=== PATIENT | female | born 1990 | race Caucasian/White ===

== ENCOUNTER → 2019-12-21 09:17 | Outpatient (BNVA) | payer OTHER, SELFPAY | PROVIDERS: Visit Provider Obstetrics & Gynecology | DX: Z12.4 Encounter for screening for malignant neoplasm of cervix (principal) | CPT/HCPCS: 88175 ==

== ENCOUNTER → 2020-01-10 13:36 | Outpatient (BNVA) | payer OTHER, SELFPAY | PROVIDERS: Visit Provider Obstetrics & Gynecology | DX: Z30.9 Encounter for contraceptive management, unspecified (principal); B96.89 Other specified bacterial agents as the cause of diseases classified elsewhere; N76.0 Acute vaginitis; Z30.430 Encounter for insertion of intrauterine contraceptive device | CPT/HCPCS: 81025; 87070 ==

== ENCOUNTER → 2020-09-02 11:01 | Outpatient (BNVA) | payer OTHER, SELFPAY | PROVIDERS: Visit Provider Nurse Practitioner Family | DX: N39.0 Urinary tract infection, site not specified (principal); R10.32 Left lower quadrant pain | CPT/HCPCS: 81000 ==

== ENCOUNTER 2022-05-18 23:24 | Emergency (ER) | payer OTHER, SELFPAY ==
--- NOTE | 2022-05-18 23:26 | XRR_ITS ---
PROCEDURE INFORMATION: Exam: XR Left Hand Exam date and time: 05/18/2022 11:39 PM Age: 32 years old Clinical indication: Injury or trauma; Fall; Swelling (edema); Left middle finger TECHNIQUE: Imaging protocol: Radiologic exam of the Left hand. Views: 3 or more views. COMPARISON: No relevant prior studies available. FINDINGS: Bones/joints: Comminuted minimally displaced fracture through the shaft of the middle finger middle phalanx. Soft tissues: Normal. XR/XR hand LT min 3V* [id number] IMPRESSION: Comminuted minimally displaced fracture through the shaft of the middle finger middle phalanx.
[2022-05-18 23:42] VITALS: BMI 24.2
[2022-05-18 23:44] VITALS: BP 121/71; PULSE 85; RESP 16; TEMP 37; O2SAT 99
--- NOTE | 2022-05-18 23:44 | ED_ITS ---
HPI - Extremity Problem General: Chief complaint: Extremity Injury, Upper Stated complaint: finger injury on left hand Time Seen by Provider: 05/18/22 23:36 Source: patient Mode of arrival: ambulatory Limitations: no limitations History of Present Illness: 32-year-old female states that she was on a rope swing swimming in the water states that she had swelling in her foot and felt immediate pain to her left middle finger she is unsure what actually happened she has had increasing pain since event she rates her pain a 7 out of 10 especially movement improved with rest denies any other injuries. Associated symptoms: Deny chest pain, fever(s) or rash Review of Systems Const: Denies: fever(s), chills, body aches or change in appetite Eyes: Denies: blurry vision or eye discomfort ENMT: Denies: throat pain or dental pain Card: Denies: chest pain Resp: Denies: dyspnea GI: Denies: abdominal pain, nausea, vomiting or diarrhea : Denies: dysuria Musc: Reports: extremity pain Skin/Breast: Denies: rash Neuro: Denies: headache(s) Psych: Denies: depression Kennedy/Lymph: Denies: easy bruising All/Imm: Denies: urticaria PFSH ED PFSH: Medical History (Updated 05/18/22 @ 23:47 by Gael Escamilla MD) Acute left-sided back pain Ruptured cyst of left ovary Surgical History (Updated 09/09/20 @ 13:49 by Nicki Sepulveda) History of mandibular surgery Hx of cholecystectomy Family History (System 09/09/20 @ 13:49 by Nicki Sepulveda) Grandmother Breast cancer maternal Hypertension paternal Stroke paternal Other Cancer Social History (System 09/09/20 @ 13:49 by Nicki Sepulveda) Smoking and tobacco status: never smoked Alcohol intake: current Alcohol intake frequency: holidays/special occasions only Alcohol type: beer Current occupational status: employed Physical Exam Const: COMMON NORMALS: no acute distress, patient oriented x3 and healthy appearing HENMT: COMMON NORMALS: normocephalic and atraumatic HEAD & SCALP: normocephalic and atraumatic Eye: COMMON NORMALS: Equal, round and reactive pupils present PUPIL: Yes Equal, round and reactive pupils present Neck/C-Spine: COMMON NORMALS: full ROM and supple Chest: COMMONS NORMALS: normal inspection of the chest Resp: COMMON NORMALS: normal respiratory effort, No retractions, No use of accessory muscles and clear to auscultation bilaterally AUSCULTATION: clear to auscultation bilaterally Cardio: COMMON NORMALS: regular rate, regular rhythm and No murmurs present (C ardio) RATE: regular rate RHYTHM: regular rhythm GI: INSPECTION: Yes normal to inspection Extremity: COMMON NORMALS: full ROM NARRATIVE EXTREMITY EXAM: Contusion to left middle finger at the PIP has full range of motion tenderness to touch Neuro: COMMON NORMALS: patient oriented x3, moves all extremities and no focal motor deficits Psych: COMMON NORMALS: mental status grossly normal, Normal thought process present and cooperative THOUGHT PROCESS: Normal thought process present Skin: COMMON NORMALS: no rashes or lesions noted and no wounds GENERAL SKIN EXAM: no rashes or lesions noted Course Vital Signs: Vital signs: Vital Signs Temperature 98.6 F 05/18/22 23:44 Pulse Rate 85 05/18/22 23:44 Respiratory Rate 16 05/18/22 23:44 Blood Pressure 121/71 05/18/22 23:44 Pulse Oximetry 99 05/18/22 23:44 MDM - Extremity (Nontraumatic) Medical Decision Making Patient presents with a finger fracture to her left middle finger is nondisplaced. Will place in a splint get follow-up with orthopedics and prescribe pain meds she is to follow-up and return if worsening. Discharge Plan Discharge Patient Disposition: Home Clinical Impression: Finger fracture, left Qualifiers: Encounter type: initial encounter Finger: middle finger Fracture type: closed Phalanx: middle Fracture alignment: nondisplaced Qualified Code(s): S62.653A - Nondisplaced fracture of middle phalanx of left middle finger, initial encounter for closed fracture Condition: Stable Prescriptions: New hydrocodone-acetaminophen 5-325 mg tablet 1 tab PO Q6H PRN (Reason: pain) Qty: 14 0RF Naprosyn 500 mg tablet 500 mg PO BID PRN (Reason: pain) Qty: 20 0RF No Action doxycycline hyclate 100 mg capsule 100 mg PO QDAY PRN0RF albuterol sulfate 90 mcg/actuation aero powdr breath act w/sensor 2 inh INHALATION Q6H PRN0RF Label Comments: 1 minute apart before exercise metronidazole 0.75 % gel 1 applic TOPICAL QDAY 0RF tretinoin 0.025 % cream 1 applic TOPICAL DAILY PRN0RF Dalila 14 mcg/24 hrs (3 yrs) 13.5 mg intrauterine device INTRAUTERI 0RF doxycycline hyclate 100 mg tablet 100 mg PO .PRN 0RF omega-3 fatty acids [Fish Oil Concentrate] 1,000 mg capsule 1,000 mg PO DAILY 0RF albuterol sulfate 90 mcg/actuation HFA aerosol inhaler 2 puff INHALATION Q6H PRN0RF Multi-Vitamin HP/Minerals Capsule 1 cap PO DAILY 0RF Discharge Orders: Discharge ED (Routine); Ordered 05/18/22 Ordered By: Gael Escamilla Referrals: Anabel Kitchen MD [Physician] - 1-3 days Discharge Diet: Advance as tolerated Discharge Activity: Resume usual activity Patient Instructions: Finger Fracture (ED), Opioid Safety Coding Level of Care Code ED Stripping Machine Operator for Chg Fwd Exam Comprehensive
[2022-05-19 00:14] VITALS: BP 110/67; PULSE 90; RESP 16; TEMP 36.7; O2SAT 99
--- NOTE | 2022-05-19 09:56 | PC.SOCIAL ---
Ortho Follow-Up Message sent to ortho clinic to schedule patient a follow-up appointment. Clinic will call patient with appointment.
--- NOTE | 2022-05-20 14:02 | PC.SOCIAL ---
Ortho F/u Ortho clinic wants patient to see a hand specialist. Attempted to reach patient to get her preference of location, lives in [place], [place]. Went ahead and faxed referral to [facility] in [place]. . They will contact her with appointment. If patient returns call and does not want to go to [facility] will need to update them and fax where she requests.
== END 2022-05-19 00:16 | disposition home or self-care (01) ==
PROVIDERS: Emergency Provider Emergency Medicine
DX: S62.653A Nondisplaced fracture of middle phalanx of left middle finger, initial encounter for closed fracture (principal); X58.XXXA Exposure to other specified factors, initial encounter
CPT/HCPCS: 73130; 99283

== ENCOUNTER → 2023-02-02 11:05 | Outpatient (BNVA) | payer OTHER, SELFPAY | PROVIDERS: Visit Provider Nurse Practitioner Women's Health | DX: Z32.01 Encounter for pregnancy test, result positive (principal) | CPT/HCPCS: 81000; 81025 ==

== ENCOUNTER → 2023-02-23 14:10 | Outpatient (BNVA) | payer OTHER, SELFPAY | PROVIDERS: Visit Provider Nurse Practitioner Women's Health | DX: Z36.87 Encounter for antenatal screening for uncertain dates (principal) | CPT/HCPCS: 76817 ==

== ENCOUNTER → 2023-03-15 08:28 | Outpatient (BNVA) | payer OTHER, SELFPAY | PROVIDERS: Visit Provider Obstetrics & Gynecology | DX: Z34.00 Encounter for supervision of normal first pregnancy, unspecified trimester (principal) | CPT/HCPCS: 80307; 84315; 87086 ==

== ENCOUNTER → 2023-03-29 07:52 | Outpatient (BNVA) | payer OTHER, SELFPAY | PROVIDERS: Visit Provider Obstetrics & Gynecology | DX: Z34.00 Encounter for supervision of normal first pregnancy, unspecified trimester (principal) | CPT/HCPCS: 76817; 80307; 84315; 85027; 86592; 86762; 86803; 86850; 86870; 86900; 87086; 87340; 87491; 87591; 87661; 87806 ==

== ENCOUNTER → 2023-04-26 12:10 | Outpatient (BNVA) | payer OTHER, SELFPAY | PROVIDERS: Visit Provider Obstetrics & Gynecology | DX: Z36.9 Encounter for antenatal screening, unspecified (principal) | CPT/HCPCS: 76817; 82105; 84315 ==

== ENCOUNTER → 2023-05-11 09:13 | Outpatient (BNVA) | payer OTHER, SELFPAY | PROVIDERS: Visit Provider Obstetrics & Gynecology | DX: O34.42 Maternal care for other abnormalities of cervix, second trimester (principal); Z98.890 Other specified postprocedural states; Z3A.18 18 weeks gestation of pregnancy | CPT/HCPCS: 76817 ==

== ENCOUNTER → 2023-05-24 14:13 | Outpatient (BNVA) | payer OTHER, SELFPAY | PROVIDERS: Visit Provider Obstetrics & Gynecology | DX: Z34.90 Encounter for supervision of normal pregnancy, unspecified, unspecified trimester (principal) | CPT/HCPCS: 76805; 76817 ==

== ENCOUNTER → 2023-06-01 12:17 | Outpatient (BNVA) | payer OTHER, SELFPAY | PROVIDERS: Visit Provider Obstetrics & Gynecology | DX: Z34.90 Encounter for supervision of normal pregnancy, unspecified, unspecified trimester (principal) | CPT/HCPCS: 76817 ==

== ENCOUNTER → 2023-06-14 12:28 | Outpatient (BNVA) | payer OTHER, SELFPAY | PROVIDERS: Visit Provider Obstetrics & Gynecology | DX: O34.40 Maternal care for other abnormalities of cervix, unspecified trimester (principal); Z3A.24 24 weeks gestation of pregnancy | CPT/HCPCS: 76817; 84315 ==

== ENCOUNTER → 2023-07-01 13:00 | Outpatient (BNVA) | payer OTHER, SELFPAY | PROVIDERS: Visit Provider Obstetrics & Gynecology | DX: Z34.00 Encounter for supervision of normal first pregnancy, unspecified trimester (principal) | CPT/HCPCS: 82950; 84315 ==

== ENCOUNTER → 2023-07-11 10:21 | Outpatient (BNVA) | payer OTHER, SELFPAY | PROVIDERS: Visit Provider Obstetrics & Gynecology | DX: Z34.00 Encounter for supervision of normal first pregnancy, unspecified trimester (principal) | CPT/HCPCS: 76815; 76817; 84315; 85025 ==

== ENCOUNTER → 2023-07-27 08:20 | Outpatient (BNVA) | payer OTHER, SELFPAY | PROVIDERS: Visit Provider Nurse Practitioner Women's Health | DX: Z34.00 Encounter for supervision of normal first pregnancy, unspecified trimester (principal) | CPT/HCPCS: 82951; 82952 ==

== ENCOUNTER → 2023-08-18 12:36 | Outpatient (BNVA) | payer OTHER, SELFPAY | PROVIDERS: Visit Provider Obstetrics & Gynecology | DX: Z34.00 Encounter for supervision of normal first pregnancy, unspecified trimester (principal) | CPT/HCPCS: 76815; 76817; 84315 ==

== ENCOUNTER → 2023-09-12 12:27 | Outpatient (BNVA) | payer OTHER, SELFPAY | PROVIDERS: Visit Provider Obstetrics & Gynecology | DX: Z36.9 Encounter for antenatal screening, unspecified (principal) | CPT/HCPCS: 76816; 84315; 87081 ==

== ENCOUNTER 2023-10-04 17:00 | Inpatient (IN) | payer OTHER, SELFPAY ==
[2023-10-04] VITALS (10 sets, daily range): BP systolic 113–154; BP diastolic 72–84; PULSE 64–77; RESP 17; TEMP 35.8; BMI 33.2
[2023-10-04 18:45] LABS: Basophils % 0.3 %; Eosinophils % 0.3 %; Hematocrit 37.5 % (36-47); Lymphocytes # 2.2 10^3/uL (0.8-4.8); Lymphocytes % 21.7 %; Mean Corpuscular HGB Conc 34.4 g/dL (30-55); Mean Corpuscular Hemoglobin 31.5 pg (27-33); Mean Corpuscular Volume 91.5 fl (85-98); Mean Platelet Volume 11.4 fL (7.4-10.4); Monocytes # 0.6 10^3/uL (0.2-0.9); Monocytes % 6.1 %; Neutrophils # 7.25 10^3/uL (1.8-7.7); Nucleated Red Blood Cells % 0 %; Platelet Count 156 10^3/cmm (157-399); Red Cell Distribution Width 12.9 % (12.1-15.1); White Blood Count 10.21 10^3/uL (3.29-11.43)
[2023-10-04] MEDS: miSOPROStol 100 mcg tablet 25 MCG VAGINAL ×2 (18:56→23:09)
[2023-10-04] MEDS: ampicillin 2,000 MG in sodium chloride 0.9% (plus) 50 ML 100 MG IV (18:56)
[2023-10-04] MEDS: dextrose 5%-lactated ringers 1,000 ML 125 ML IV (18:56)
[2023-10-04] MEDS: ampicillin 1,000 MG in sodium chloride 0.9% (plus) 50 ML 100 MG IV (23:07)
[2023-10-05] VITALS (46 sets, daily range): BP systolic 100–155; BP diastolic 55–90; PULSE 45–96; RESP 16–20; TEMP 36–36.4; O2SAT 97–98
[2023-10-05] MEDS: acetaminophen 325 mg Tablet 650 MG PO ×2 (03:11→16:05)
[2023-10-05] MEDS: miSOPROStol 100 mcg tablet 25 MCG VAGINAL (03:20)
[2023-10-05] MEDS: ampicillin 1,000 MG in sodium chloride 0.9% (plus) 50 ML 100 MG IV ×5 (03:20→18:20)
--- NOTE | 2023-10-05 07:52 | PM.OPHPUD ---
Labor & Delivery H&P Update Date of Procedure: October 05, 2023 Date H&P Performed: 10/03/23 H&P update information: I have reviewed H&P completed within last 30 days, I have examined patient prior to procedure and No changes to prior documentation Admission Diagnosis:
[2023-10-05] MEDS: oxytocin 30 UNIT/500 ML BAG IV (09:48)
[2023-10-05] MEDS: calcium carbonate 500 mg Chew Tablet 1000 MG PO (11:34)
[2023-10-05] MEDS: alum-mag-hydroxide-sime 30 mL UDC PO ×2 (12:00→20:28)
[2023-10-05] MEDS: dextrose 5%-lactated ringers 1,000 ML 125 ML IV (12:52)
[2023-10-05] MEDS: ondansetron 2 mg/ML SDV 2 mL 4 MG IVP (16:47)
[2023-10-05] MEDS: fentaNYL 50 mcg/mL INJ 2mL IVP ×3 (17:28→20:27)
[2023-10-05] MEDS: lidocaine 2% INJ 20 mL INJECTION (19:17)
--- NOTE | 2023-10-05 19:21 | P.PCNOB_ITS ---
Delivery Note: Date of delivery: October 05, 2023 Pre-delivery diagnoses: Term Post-delivery diagnoses: Term delivered Procedure: Spontaneous vaginal delivery Delivering Physician: Giovanni Dejesus MD Estimated blood loss (mL): 300 Pre-Delivery Course: The patient is a 33yo at 39 weeks EGA who has been receiving care from [facility]. Admitted to labor and delivery for elective induction LMP of 01/03/2023, VERA of 10/10/2023, placing her at 39-1/7 weeks gestation today. HPI: Received appropriate care. Daily vitamins since start of care. labs have all been normal, including negative for HIV. She was found to positive for Group B Strep from screening at 36 weeks. She has gained approximately 26 lbs throughout the . She denies a history of HTN during . Glucose tolerance screening for gestational diabetes was negative. Delivery: The patient was noted to be complete and pushing, so was placed in the dorsal lithotomy position, prepped and draped in the usual sterile fashion for a vaginal delivery. Pt. Noted to have epidural anesthesia. At the patient delivered a viable 39 weeks female weighing 3690 g with scores of 8 and 9 at one and five minutes, respectively. The vertex was delivered spontaneously over intact perineum. The patient was asked to push and the head delivered spontaneously in the WATSON position, over an intact perineum. A nuchal cord was checked and none noted. The anterior shoulder delivered easily and the posterior shoulder followed. The remainder of the infant was easily delivered and the oropharynx and nasopharynx was bulb suctioned. The infant was noted to have spontaneous cry and spontaneous movement of all four extremities. The cord was clamped x 2 and cut and noted to have 2 arteries and one vein. The infant was passed to the mother's abdomen where nursing personnel were in attendance. The placenta delivered intact via manual extraction and the uterus was explored. 20 units of Pitocin was placed in the IV bag to firm the uterus. Examination of the cervix and vaginal vault did not reveal any lacerations. A vaginal pack was then placed. Examination of the perineum showed no laceration except a small midline abrasion. The vaginal pack was then removed. The patient tolerated this procedure well, and recovered in L&D with her infant or note if taken to NICU. All sponge and needle counts were correct. History History History 1 Term 0 0 Miscarriages/Ectopic 0 Living Children 0 Coding Level of Care Code Acute Code for Chg Fwd
[2023-10-05] MEDS: benzocaine-menthol 78 gm Canister 1 SPRAY TOPICAL (19:47)
[2023-10-05] MEDS: ibuprofen 800 mg tablet PO (19:47)
[2023-10-05] MEDS: HYDROcodone-acetaminophen 5-325 mg Tablet PO (19:47)
[2023-10-05] MEDS: tranexamic acid 1,000 MG/100 ML PREMIX 600 MG IV (21:35)
[2023-10-05] MEDS: citric acid-sodium citrate 30 mL UDC PO (21:36)
[2023-10-05] MEDS: metoclopramide 5 mg/mL SDV 2 mL 10 MG IVP (21:36)
[2023-10-05] MEDS: lactated ringers 1,000 ML 999 ML IV (21:36)
[2023-10-05] MEDS: famotidine 20 mg/2 mL INJ IVP (21:37)
--- NOTE | 2023-10-05 22:24 | PC.NURSE ---
2155 this nurse and Josué Valladares CST transported pt via stretcher to Preop in main OR. Viviane Jesus RN took report from this nurse and care was transferred at 2202.
--- NOTE | 2023-10-05 22:32 | P.ANESASSM_ITS ---
Pre-Anesthetic Assessment Height/Weight: Height 1.68 m Weight 93.44 kg Temp Pulse Resp BP O2 Del Method 97.5 F L 71 20 H 126/76 Room Air 10/05/23 16:17 10/05/23 21:47 10/05/23 18:23 10/05/23 21:47 10/04/23 23:53 Operation Date: 10/05/23 22:00 Proposed Procedures p Vaginal Laceration Repair(Not Applicable) - Giovanni Dejesus MD Familial anesthetic complications: none Was Beta Donna taken within 24 hours: N/A Was Clonidine taken within 24 hours: N/A Social No alcohol and No tobacco Exam alert, oriented x 3, clear to auscultation bilaterally and regular rate & rhythm Airway Submandibular: within normal limits Cervical ROM: within normal limits Mallampati: Class II Dentition: full Pulmonary Asthma CV/HEM Acute blood loss (post ) Neuropsych Headache Anesthetic Plan ASA status: 2E Anesthesia: General (RSI) Medications/Allergies Home Medications Medication Instructions Recorded Confirmed Last Taken Type albuterol sulfate 90 mcg/actuation 2 puff inhalation Q6H PRN 09/02/20 10/03/23 Unknown History aerosol inhaler prenat.vits,keily,kmr-nbrv-emvls 1 tab PO DAILY 02/22/23 10/03/23 Unknown History blood sugar diagnostic (Accu-Chek #100 ea 07/29/23 10/03/23 Unknown Rx Guide test strips) blood-glucose meter (Accu-Chek #1 ea 07/29/23 10/03/23 Unknown Rx Guide Glucose Meter) lancets 31 gauge (Comfort Touch #100 ea 07/29/23 10/03/23 Unknown Rx Ultra Thin Lancets) Allergies Allergy/AdvReac Type Severity Reaction Status Date / Time No Known Allergies Allergy Verified 10/03/23 11:17 Current Medications Generic Name Dose Route Start Last Admin Trade Name Freq PRN Reason Stop Dose Admin Acetaminophen 650 mg 10/04/23 18:23 10/05/23 16:05 Acetaminophen 325 Mg Tablet PO 650 mg Q6H PRN Administration MILD TO MODERATE PAIN Hydrocodone Bitart/Acetaminophen 1 - 2 tab 10/05/23 19:26 10/05/23 19:47 Hydrocodone-Acetaminophen 5-325 Mg Tablet PO 2 tab Q6H PRN Administration MODERATE TO SEVERE PAIN Al Hydrox/Mg Hydrox/Simethicone 30 ml 11/07/23 18:23 10/05/23 20:28 Ahqj-Rpl-Vzjezytbr-Vincenzo 30 Ml Udc PO 30 ml Q4H PRN Administration INDIGESTION Benzocaine 1 spray 10/05/23 19:26 10/05/23 19:47 Benzocaine-Menthol 78 Gm Canister TOPICAL 1 spray PRN PRN Administration PAIN Calcium Carbonate 1,000 mg 10/05/23 08:28 10/05/23 11:34 Calcium Carbonate 500 Mg Chew Tablet PO 1,000 mg Q4H PRN Administration Heartburn/Indigestion (Use 1st) Fentanyl 25 - 100 mcg 10/04/23 18:23 10/05/23 20:27 Fentanyl 50 Mcg/Ml Inj 2ml IVP 100 mcg Q1H PRN Administration SEVERE PAIN Dextrose/Lactated Ringer's 1,000 mls @ 125 mls/hr 10/04/23 18:23 10/05/23 12:52 Dextrose 5%-Lactated Ringers IV 125 mls/hr .Q8H PRN Administration per label comments Ampicillin Sodium 1,000 mg/ 50 mls @ 100 mls/hr 10/04/23 22:30 10/05/23 18:50 Sodium Chloride IV Infused Q4H JUSTINE Infusion Protocol Lactated Ringer's 1,000 mls @ 999 mls/hr 10/05/23 08:28 10/05/23 21:36 Lactated Ringers IV 999 mls/hr .Q1H1M PRN Administration BLEEDING Tranexamic Acid 1,000 mg in 100 mls @ 600 mls/hr 10/05/23 08:28 10/05/23 21:35 Tranexamic Acid IV 600 mls/hr Q30M PRN Administration BLEEDING Oxytocin 30 unit in 500 mls @ 1 mls/hr 10/05/23 08:30 10/05/23 17:00 Pitocin IV 5 milliunit/min .Q24H JUSTINE 5 mls/hr Titration Protocol 1 MILLIUNIT/MIN Ibuprofen 800 mg 10/05/23 21:00 10/05/23 19:47 Ibuprofen 800 Mg Tablet PO 800 mg TID JUSTINE Administration Ondansetron HCl 4 mg 10/04/23 18:23 10/05/23 16:47 Ondansetron 2 Mg/Ml Sdv 2 Ml IVP 4 mg Q4H PRN Administration NAUSEA AND VOMITING PFSH Anesthesia Medical History Exercise-induced asthma History of cervical cancer states that she was diagnosed at 26 y/o Migraine without aura Surgical History History of mandibular surgery 2006 S/P cholecystectomy 2009 S/P LEEP 2017- in [place] Family History Grandmother Breast cancer, Onset Age: 62 maternal Hypertension paternal Stroke paternal Denies family history of Colon cancer Ovarian cancer Diabetes Clotting disorder Heart disease Hyperlipidemia Anesthesia complication Bleeding disorder Uterine cancer Thyroid disease Female Reproductive History : 1 Data Anesthesia 10/04/23 18:00 Short CBC 10/04/23 Range/Units 18:00 WBC 10.21 (3.29-11.43) 10^3/uL Hgb 12.90 (11.27-16.99) g/dL Hct 37.5 (36-47) % MCV 91.5 (85-98) fl Plt Count 156 L (157-399) 10^3/cmm Neut % (Auto) 71.0 % Neut # (Auto) 7.25 (1.8-7.7) 10^3/uL Blood Bank 10/04/23 18:00 Blood Type A Positive Rho(D) Type Rh positive Cardiac Studies: No Data to Display
[2023-10-05 22:36] LABS: Hematocrit 25.9 % (36-47)
[2023-10-05] MEDS: ceFAZolin 2,000 mg SDV 2000 MG IVP (22:56)
--- NOTE | 2023-10-05 23:06 | SUR.OPER ---
[id number] FAMILY UPDATED VIA PHONE CALL
--- NOTE | 2023-10-05 23:51 | P.OP_ITS ---
Operative Report Date of procedure: October 05, 2023 Pre-op diagnosis: Status post spontaneous vaginal delivery. Vaginal hematoma Post-op diagnosis: Same Post-op findings: Vaginal hematoma Procedure done: Excision and evacuation of vaginal hematoma Specimens removed/disposition: none Surgeon: Giovanni Dejesus MD Estimated blood loss (mL): 200 IV fluids (mL): 1,550 Urine output (mL): 50 Complications: Bleeding Brief History: Mrs. Villanueva 33-year-old female is status post spontaneous vaginal delivery without complications developed a left vaginal hematoma extending to the left vulva. Procedure: After informed consent, the patient was taken to the operating room where general anesthesia was administered. Pre-Procedure Time-Out verifying the correct patient identity, correct procedure verified with consent, correct site and side, correct patient position, availability of correct implants and any special equipment or requirements was performed and acknowledge by the OR team. She was placed in the dorsal lithotomy position and prepped and draped in sterile fashion. A Malloy catheter was placed in the bladder. The patient was examined under anesthesia and a large vaginal hematoma was noted on the left vag inal wall extending to the vulva. An incision was made over the hematoma and the coagulated blood was evacuated. On examination with light suction no specific bleeders were identified and are was cauterized with bovie. The space was closed with 2-0 Vicryl in layers. The vaginal mucosa was closed with 2-0 Vicryl. Sponge, lap, needle, and instrument counts were correct times three. The patient was taken to the recovery room, awake and in stable condition.
[2023-10-06] VITALS (170 sets, daily range): BP systolic 106–141; BP diastolic 55–80; PULSE 57–84; RESP 15–16; TEMP 36.2–36.9; O2SAT 97–100
--- NOTE | 2023-10-06 00:30 | PC.NURSE ---
0010 pt back to floor accompanied by OR nurse Viviane Jesus and PACU nurse Stephanie Lovelace. Pt comfortable, awake and alert sating 100% on room air.
--- NOTE | 2023-10-06 03:14 | PC.NURSE ---
2049 pt complaining of 10/10 pain unrelieved by IV and PO medications. Possible hematoma now noted by this nurse beside left labia. clot passed onto justyna plum sized followed by moderate bleeding. chucks weighed and blood loss found to be 260mls at this time. 2057 Dr. Dejesus notified and states he is on his way to asses pt 2114 Dr. Dejesus at bedside to asses. requests anesthesia and OR staff. pt to be taken to main OR for hematoma evacuation and ligation of bleeder. 2144 pt has heavy bleeding. justyna is weighed and blood loss found to be 685mls at this time. physician notified.
[2023-10-06 06:09] LABS: Hematocrit 24.7 % (36-47); Mean Corpuscular HGB Conc 33.2 g/dL (30-55); Mean Corpuscular Hemoglobin 30.6 pg (27-33); Mean Corpuscular Volume 92.2 fl (85-98); Mean Platelet Volume 11.1 fL (7.4-10.4); Platelet Count 119 10^3/cmm (157-399); Red Blood Count 2.68 10^6/uL (3.85-5.65); Red Cell Distribution Width 14.1 % (12.1-15.1); White Blood Count 12.46 10^3/uL (3.29-11.43)
--- NOTE | 2023-10-06 07:31 | ANE.PACU2 ---
Inpatient post-anesthesia follow up: Airway intact: Yes Vital signs: Temperature 98.4 F Pulse Rate 62 Respiratory Rate 16 Blood Pressure 122/69 Pulse Oximetry 99 Oxygen Delivery Me thod Room Air Oxygen Flow Rate Fraction of Inspir ed Oxygen Hydration adequate: Yes Nausea and vomiting: No Pain level: 3 Mental status: Baseline
[2023-10-06] MEDS: ibuprofen 800 mg tablet PO ×3 (08:09→21:30)
[2023-10-06] MEDS: prenatal vitamin Capsule 1 CAP PO (08:09)
[2023-10-06] MEDS: docusate sodium 100 mg Capsule PO ×2 (08:09→18:21)
--- NOTE | 2023-10-06 09:23 | PC.NURSE ---
Assisted patient with waking techniques, positioning in football hold, patient attempted to latch . would latch and suckle a couple times then fall back asleep. was woke again and encouraged to latch several times. Attempted to entice to suckle with toot sweet. Infant continued to fall back asleep. Infant placed skin to skin with mother. Educated mother to attempt to latch if starts to lick lips or root at the breast.
[2023-10-06 11:43] LABS: Basophils % 0.2 %; Eosinophils % 0.1 %; Lymphocytes # 2.5 10^3/uL (0.8-4.8); Lymphocytes % 16.7 %; Mean Corpuscular HGB Conc 33.5 g/dL (30-55); Mean Corpuscular Hemoglobin 30.4 pg (27-33); Mean Corpuscular Volume 90.7 fl (85-98); Mean Platelet Volume 11.1 fL (7.4-10.4); Monocytes # 1.1 10^3/uL (0.2-0.9); Neutrophils # 11.44 10^3/uL (1.8-7.7); Neutrophils % 75.5 %; Nucleated Red Blood Cells % 0 %; Platelet Count 144 10^3/cmm (157-399); Red Blood Count 3.78 10^6/uL (3.85-5.65); Red Cell Distribution Width 14.6 % (12.1-15.1); White Blood Count 15.14 10^3/uL (3.29-11.43)
[2023-10-06 11:55] LABS: Hematocrit 34.3 % (36-47)
--- NOTE | 2023-10-06 11:55 | PC.NURSE ---
Lab called stating H&H were critical levels but both were WNL. Dr Dejesus notified of results and no new orders received.
--- NOTE | 2023-10-06 17:53 | PM.PN ---
Subjective Subjective: Mrs. Clements 33-year-old female is status post spontaneous vaginal delivery and left vaginal vulvar hematoma evacuation. Vitals/I&O/Wt Last Vital Signs Temp 98.6 F 10/07/23 06:32 Pulse 70 10/07/23 06:32 Resp 16 10/07/23 06:32 BP 131/71 10/07/23 06:32 Pulse Ox 99 10/07/23 06:32 O2 Del Method Room Air 10/06/23 09:14 10/06/23 10/07/23 10/07/23 22:59 06:59 14:59 Intake Total 800 / 2150 Balance 800 / -950 Physical Exam Narrative: GA; alert and oriented x 3 HEENT: normal Breasts: engorged Nipples - skin intact Lungs; clear to auscultation Heart: regular rhythm, no murmurs. Abd: Appropriately tender. BS+. Uterine fundus below umbilicus. No Fundal Tenderness. Perineum: normal lochia. Extremities: no edema, no cyanosis, no tenderness. Urinary Catheter Management: Malloy: Cath Placed During This Visit: yes, but has since been removed by the nurse Reason for Continuing Indwelling Catheter: Decision to DC Catheter Urinary Catheter Date of Insertion: 10/05/23 Urinary Catheter Time of Insertion: 22:20 Date Urinary Catheter Removed: 10/06/23 Time Urinary Catheter Discontinued: 09:29 Data 10/07/23 05:29 A&P Assessment and plan (1) Term delivered: Mrs. Sommer 33-year-old female status post continuous vaginal delivery who develop of vulvovaginal hematoma . Status post hematoma evacuation postoperative day 1. Afebrile and hemodynamically stable. Tolerating diet well. Ambulating without difficulty. (2) anemia: (3) Vulvar and perineal hematoma, : Attestations Medical Necessity Statement*: In my professional opinion per admitting diagnosis Coding Level of Care Code Acute Code for Chg Fwd Diagnoses Term delivered O80 anemia O90.81 Vulvar and perineal hematoma, O71.7
[2023-10-07 05:04] VITALS: BP 131/71; PULSE 71
[2023-10-07 05:35] LABS: Basophils % 0.4 %; Eosinophils # 0.1 10^3/uL (0.0-0.8); Eosinophils % 0.6 %; Hematocrit 31.4 % (36-47); Lymphocytes # 2.6 10^3/uL (0.8-4.8); Lymphocytes % 24.2 %; Mean Corpuscular HGB Conc 33.1 g/dL (30-55); Mean Corpuscular Hemoglobin 30.1 pg (27-33); Mean Corpuscular Volume 90.8 fl (85-98); Mean Platelet Volume 10.8 fL (7.4-10.4); Monocytes # 0.8 10^3/uL (0.2-0.9); Monocytes % 6.9 %; Neutrophils # 7.26 10^3/uL (1.8-7.7); Neutrophils % 67.2 %; Nucleated Red Blood Cells % 0 %; Platelet Count 164 10^3/cmm (157-399); Red Blood Count 3.46 10^6/uL (3.85-5.65); Red Cell Distribution Width 15.3 % (12.1-15.1); White Blood Count 10.81 10^3/uL (3.29-11.43)
[2023-10-07 06:32] VITALS: BP 131/71; PULSE 70; RESP 16; TEMP 37; O2SAT 99
[2023-10-07] MEDS: prenatal vitamin Capsule 1 CAP PO (09:07)
[2023-10-07] MEDS: ibuprofen 800 mg tablet PO (09:07)
[2023-10-07] MEDS: cetylpyridinium Lozenge 1 EACH MUCOUS MEM (09:07)
--- NOTE | 2023-10-07 09:46 | PM.OBGYDC ---
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 Mei 33-year-old female admitted to labor and delivery for elective induction. She progressed to have a spontaneous vaginal delivery without complication. Shortly after delivery she developed vulvovaginal hematoma which was extremely painful. The patient was taken to the OR left vaginal hematoma was evacuated and repair in usual manner. She received 2 units of packed red blood cells observation after that was uneventful. She is afebrile and hemodynamically stable postop day 2. She is tolerating diet well. Ambulating without difficulty. Breast-feeding without difficulty. She was counseled regarding pelvic rest for 6 weeks (no sex, no tampons, no vaginal douches). Return to the emergency room if any fever, increased bleeding or pain. Information Peripartum Data: Infant Delivery Method: Vaginal Physical Exam Narrative: GA; alert and oriented x 3 HEENT: normal Breasts: engorged Nipples - skin intact Lungs; clear to auscultation Heart: regular rhythm, no murmurs. Abd: Appropriately tender. BS+. Uterine fundus below umbilicus. No Fundal Tenderness. Perineum: normal lochia. Extremities: no edema, no cyanosis, no tenderness. Urinary Catheter Management: Malloy: Cath Placed During This Visit: yes, but has since been removed by the nurse Reason for Continuing Indwelling Catheter: Decision to DC Catheter Urinary Catheter Date of Insertion: 10/05/23 Urinary Catheter Time of Insertion: 22:20 Date Urinary Catheter Removed: 10/06/23 Time Urinary Catheter Discontinued: 09:29 History History History 1 Term 0 0 Miscarriages/Ectopic 0 Living Children 0 Discharge Data Studies Completed and Pending Laboratory Results WBC 10.81 10^3/uL (3.29-11.43) 10/07/23 05:29 RBC 3.46 10^6/uL (3.85-5.65) L 10/07/23 05:29 Hgb 10.40 g/dL (11.27-16.99) L 10/07/23 05:29 Hct 31.4 % (36-47) L 10/07/23 05:29 MCV 90.8 fl (85-98) 10/07/23 05:29 MCH 30.1 pg (27-33) 10/07/23 05:29 MCHC 33.1 g/dL (30-55) 10/07/23 05:29 RDW 15.3 % (12.1-15.1) H 10/07/23 05:29 Plt Count 164 10^3/cmm (157-399) 10/07/23 05:29 MPV 10.8 fL (7.4-10.4) H 10/07/23 05:29 Neut % (Auto) 67.2 % 10/07/23 05:29 Lymph % (Auto) 24.2 % 10/07/23 05:29 [place] % (Auto) 6.9 % 10/07/23 05:29 Eos % (Auto) 0.6 % 10/07/23 05:29 Baso % (Auto) 0.4 % 10/07/23 05:29 Neut # (Auto) 7.26 10^3/uL (1.8-7.7) 10/07/23 05:29 Lymph # (Auto) 2.6 10^3/uL (0.8-4.8) 10/07/23 05:29 [place] # (Auto) 0.8 10^3/uL (0.2-0.9) 10/07/23 05:29 Eos # (Auto) 0.1 10^3/uL (0.0-0.8) 10/07/23 05:29 Baso # (Auto) 0.0 10^3/uL (0.0-0.1) 10/07/23 05:29 Nucleated RBC % (auto) 0 % 10/07/23 05:29 Nucleated RBCs # 0.0 /100WBC 10/07/23 05:29 Blood Type A Positive 10/04/23 18:00 Rho(D) Type Rh positive 10/04/23 18:00 Antibody Screen Negative 10/04/23 18:00 Antibody Identification TNP 10/04/23 18:00 Cold Antibody Screen Negative 10/04/23 18:00 Crossmatch See Detail 10/04/23 18:00 Vitals Last Vital Signs Temp 98.6 F 10/07/23 06:32 Pulse 70 10/07/23 06:32 Resp 16 10/07/23 06:32 BP 131/71 10/07/23 06:32 Pulse Ox 99 10/07/23 06:32 O2 Del Method Room Air 10/06/23 09:14 Results Labs OB ([facility]): Obstetrics US 09/12/23 Blood Type A Positive 10/04/23 Antibody Screen Negative 10/04/23 Hct 31.4 % (36-47) L 10/07/23 Hgb 10.40 g/dL (11.27-16.99) L 10/07/23 Rho(D) Type Rh positive 10/04/23 Plt Count 164 10^3/cmm (157-399) 10/07/23 Hep Bs Antigen Non-reactive (Nonreactive) 03/29/23 Hepatitis C Antibody Non-reactive (Nonreactive) 03/29/23 [place] IgG Antibody 3.9 IU/mL (0.0-10.0) 03/29/23 RPR Nonreactive (Nonreactive) 03/29/23 HIV 1&2 Ab & HIV 1 Ag Non-reactive (Non-Reactiv) 03/29/23 Cystic Fibrosis Screen Negative 03/29/23 Gest Glucose Tolerance mg/dL 07/27/23 HCG, Qual Positive (Negative) H 02/02/23 Urine Opiates Screen Negative ng/mL (Negative) 03/29/23 Ur Barbiturates Screen Negative ng/mL (Negative) 03/29/23 Ur Phencyclidine Scrn Negative ng/mL (Negative) 03/29/23 Ur Amphetamines Screen Negative ng/mL (Negative) 03/29/23 U Benzodiazepines Scrn Negative ng/mL (Negative) 03/29/23 Urine Cocaine Screen Negative ng/mL (Negative) 03/29/23 U Marijuana (THC) Screen Negative ng/mL (Negative) 03/29/23 Micro Urine Specimen 03/29/23 Pap Smear Interpret See note 12/21/19 Discharge Plan Discharge Patient Disposition: Home Condition: Stable Prescriptions: New acetaminophen 325 mg capsule 325 mg PO Q4H PRN (Reason: fever or postoperative pain) Qty: 60 0RF docusate sodium [Colace] 100 mg capsule 100 mg PO BID Qty: 30 0RF ferrous sulfate [Iron (ferrous sulfate)] 325 mg (65 mg iron) tablet 325 mg PO BID Qty: 60 0RF ibuprofen 800 mg tablet 800 mg PO TID PRN (Reason: pain) Qty: 60 0RF No Action albuterol sulfate 90 mcg/actuation HFA aerosol inhaler 2 puff INHALATION Q6H PRN prenat.vits,keily,[id number] Tablet 1 tab PO DAILY (DME) blood-glucose meter [Accu-Chek Guide Glucose Meter] Misc See Rx Instructions .ROUTE .MEDSUPPLY Qty: 1 0RF Rx Instructions: Check blood sugar 4 times a day (DME) Accu-Chek Guide test strips Strip See Rx Instructions .ROUTE .MEDSUPPLY Qty: 100 3RF Rx Instructions: As directed (DME) Comfort Touch Ult Thin Lancets 31 gauge misc See Rx Instructions .ROUTE .MEDSUPPLY Qty: 100 3RF Rx Instructions: As directed Discharge Orders: Discharge Order (Routine); Ordered 10/07/23 Ordered By: Giovanni Dejesus Patient Instructions: Depression (DC), Preeclampsia and Eclampsia After Delivery (GEN), Hemorrhage (DC), OB Discharge Report, OB Food/Drug Interaction Guide, OB Care at Home, Opioid Safety, OB Home Care, Abnormal Bleeding Activity Restrictions/Additional Instructions: 1. Please call [facility] on next working day to make your post-operative appointment in 2 weeks and visit at 6 weeks. 2. Please stay home until you come back to the clinic on first post-hospatilization check up. 3. Please follow instructions on your medications CAREFULLY. 4. If you have abdominal incision, do not cover it unless dressing is necessary because of drainage. OK to shower, but avoid bath. Leave steri-strips until they fall off. If they are still on one week after surgery, you may remove them. 5. If you had vaginal surgery or vaginal repair, Dr. Dejesus may instruct you to take SITZ bath. 6. Yellow, blood tinged odorous vaginal discharge is usually normal after hysterectomy or vaginal surgeries. 7. No SEXUAL INTERCOURSE, tampons, or douches until you are completely released from the post-operative care. 8. Avoid constipation by eating right and maybe using some Metamucil or Milk of Magnesia. 9. All prescription refills are given during the working hours. Please do no wait till it runs out. Call the clinic at [phone] before your medication runs out. The clinic will get in touch with your doctor to prescribe medications if necessary. 10. Please remain within 40 mile radius from our hospital because emergencies do happen now and then during the post-operative period. 11. If you have stairs at home, take one step at a time slowly and minimize the number of trips. It helps to stay in one floor for the next few days. No lifting except what you can lift by one hand until you are released from the post-operative care. 12. Driving is discouraged until you are well healed. It may be 3-4 weeks before you feel strong enough to drive. You should be able to turn and look through the rear window without pain and you should be able to push the brake pedal very hard without pain before you drive. No fast rules, but SAFETY should be your primary concern. DO NOT drive if you are on sedating medications such as narcotics. 13. Call the clinic (during working hours) to make urgent appointment or go to the Emergency room, if any of the following occurs: i. Vaginal bleeding becomes heavy, more than a period. ii. Incision becomes red and sore, or drains pus. iii. Your TEMPERATURE is over 100.4F or you have chill. iv. IV site becomes red and swollen (a little ``knot?? is usually OK) v. Persistent nausea and vomiting vi. Persistent constipation or diarrhea vii. Rash or allergic reaction to medications. Discharge Attestations STEAMTABLE ATTENDANT RAILROAD Time Spent in Discharge Care*: greater than 30 min Coding Level of Care Code Acute Code for Chg Fwd Diagnoses
[2023-10-07 12:37] VITALS: BP 148/75; PULSE 70
[2023-10-07 12:43] VITALS: BP 148/75; PULSE 70; RESP 18; TEMP 36.6
== END 2023-10-07 12:43 | disposition home or self-care (01) | DRG 768 ==
LOC: OPOB 10-05 07:50 → OBGYN 10-05 07:50
PROVIDERS: Admitting Provider Obstetrics & Gynecology; PCP Family Medicine Adult Medicine; Visit Provider Obstetrics & Gynecology
PROC: 0UQG0ZZ Repair Vagina, Open Approach (ICD-10-PCS; principal; 2023-10-05 22:00)
DX: O99.824 Streptococcus B carrier state complicating childbirth (principal); O75.89 Other specified complications of labor and delivery; J45.990 Exercise induced bronchospasm; Z85.41 Personal history of malignant neoplasm of cervix uteri; O90.81 Anemia of the puerperium; O71.82 Other specified trauma to perineum and vulva; Z37.0 Single live birth; Z3A.39 39 weeks gestation of pregnancy
CPT/HCPCS: 36415; 36430; 59025; 59409; 85014; 85018; 85025; 85027; 86850; 86870; 86900; 86920; 96374; 96375; 98960; G0378; J0290; J0330; J0690; J1100; J2405; J2590; J2704; J2765; J3010; J3490; J3535; J7120; J7121; P9016; P9045

== ENCOUNTER 2023-10-10 11:54 | Observation (INO) | payer OTHER, SELFPAY ==
[2023-10-10] VITALS (7 sets, daily range): BP systolic 120–159; BP diastolic 77–94; PULSE 61–87; RESP 15–16; TEMP 36.6–37.1; O2SAT 97–99; BMI 31.9
--- NOTE | 2023-10-10 12:15 | ED_ITS ---
HPI - General: Chief complaint: OB/Uterine Contractions Stated complaint: increase pain/bleeding after Time Seen by Provider: 10/10/23 12:07 Source: patient Mode of arrival: EMS History of Present Illness: 33-year-old female presents to the emergency room with complaints of increased vaginal bleeding. She is 5 days normal spontaneous vaginal delivery she had a fairly extensive bleed and then developed a vulvovaginal hematoma that required surgical drainage. She received 2 units of blood her baseline hemoglobin was 12.9 her hemoglobin got as low as 8.2 after transfusion she is back up to 10.4 and discharged home on 1110. She has had increasing bleeding as well as more cramping today contacted OB and then ultimately called EMS. MD Complaint: vaginal bleeding Onset (ago): day(s) Severity: moderate Quality: Cramping Relieving factors: none Exacerbating factors: none Vaginal bleeding: heavy Associated symptoms: Deny abdominal pain, dyspareunia, dysuria, headache(s), malaise, nausea, rash, seizures, short of breath, syncope, vaginal bleeding, vaginal discharge, visual changes, vomiting or weakness Review of Systems Const: Denies: malaise Card: Reports: dyspnea on exertion; Denies: chest pain or syncope Resp: Reports: dyspnea GI: Denies: abdominal pain, nausea or vomiting : Denies: dysuria, urinary frequency, urinary urgency, vaginal discharge or dyspareunia Neuro: Denies: headache(s) PFS ED PFSH: Medical History Exercise-induced asthma History of cervical cancer states that she was diagnosed at 26 y/o Migraine without aura anemia Surgical History History of mandibular surgery 2006 S/P cholecystectomy 2010 S/P LEEP 2017- in [place] Family History Grandmother Breast cancer, Onset Age: 62 maternal Hypertension paternal Stroke paternal Denies family history of Colon cancer Ovarian cancer Diabetes Clotting disorder Heart disease Hyperlipidemia Anesthesia complication Bleeding disorder Uterine cancer Thyroid disease Physical Exam Const: GENERAL APPEARANCE: cooperative and comfortable ORIENTATION/CONSCIOUSNESS: Yes awake, Yes oriented to person, Yes oriented to place and Yes oriented to time HENMT: COMMON NORMALS: normocephalic, atraumatic and hearing grossly normal bilaterally HEAD & SCALP: normocephalic and atraumatic Resp: COMMON NORMALS: normal respiratory effort, No retractions, No use of accessory muscles and clear to auscultation bilaterally AUSCULTATION: clear to auscultation bilaterally Cardio: COMMON NORMALS: regular rate, regular rhythm and No murmurs present (Cardio) RATE: regular rate RHYTHM: regular rhythm GI: COMMON NORMALS: Soft to palpation and No hepatosplenomegaly present AUSCULTATION: Yes normoactive bowel sounds PALPATION: Yes Soft to palpation, No Tenderness to palpation present (GI), No Guarding due to palpation present (GI) and Yes No hepatosplenomegaly present OTHER: Uterus palpable 4 fingerbreadths below the umbilicus : SPECULUM EXAM - VAGINA: No vaginal bleeding OB/EXTERNAL & SPECULUM: No vaginal bleeding Extremity: COMMON NORMALS: normal to inspection, capillary refill normal, no clubbing, cyanosis or edema, no calf tenderness and no pedal edema Neuro: SENSORIUM/ORIENTATION: Yes oriented to person, Yes oriented to place and Yes oriented to time Skin: COMMON NORMALS: no rashes or lesions noted GENERAL SKIN EXAM: no rashes or lesions noted Course Vital Signs: Vital signs: Vital Signs Temperature 98.8 F 10/10/23 12:00 Pulse Rate 75 10/10/23 13:33 Respiratory Rate 16 10/10/23 12:00 Blood Pressure 133/88 10/10/23 13:33 Pulse Oximetry 97 10/10/23 13:33 Oxygen Delivery Me thod Room Air 10/10/23 14:25 MDM - OB/Uterine Contractions Medical Decision Making Pelvic hematoma CT reviewed discussed Dr. Dejesus will admit hemoglobin has been stable admit to OB floor discussed with patient as well orders written Medical Records I reviewed the patient's medical records. Lab Data I reviewed the patient's lab results. 10/10/23 12:40 10/10/23 12:40 Laboratory Results WBC 9.16 10^3/uL (3.29-11.43) 10/10/23 12:40 RBC 3.77 10^6/uL (3.85-5.65) L 10/10/23 12:40 Hgb 11.30 g/dL (11.27-16.99) 10/10/23 12:40 Hct 34.6 % (36-47) L 10/10/23 12:40 MCV 91.8 fl (85-98) 10/10/23 12:40 MCH 30.0 pg (27-33) 10/10/23 12:40 MCHC 32.7 g/dL (30-55) 10/10/23 12:40 RDW 14.0 % (12.1-15.1) 10/10/23 12:40 Plt Count 244 10^3/cmm (157-399) 10/10/23 12:40 MPV 9.1 fL (7.4-10.4) 10/10/23 12:40 Neut % (Auto) 74.2 % 10/10/23 12:40 Lymph % (Auto) 16.5 % 10/10/23 12:40 [place] % (Auto) 6.8 % 10/10/23 12:40 Eos % (Auto) 0.8 % 10/10/23 12:40 Baso % (Auto) 0.4 % 10/10/23 12:40 Neut # (Auto) 6.80 10^3/uL (1.8-7.7) 10/10/23 12:40 Lymph # (Auto) 1.5 10^3/uL (0.8-4.8) 10/10/23 12:40 [place] # (Auto) 0.6 10^3/uL (0.2-0.9) 10/10/23 12:40 Eos # (Auto) 0.1 10^3/uL (0.0-0.8) 10/10/23 12:40 Baso # (Auto) 0.0 10^3/uL (0.0-0.1) 10/10/23 12:40 Nucleated RBC % (auto) 0 % 10/10/23 12:40 Nucleated RBCs # 0.0 /100WBC 10/10/23 12:40 Sodium 139 mmol/L (136-145) 10/10/23 12:40 Potassium 4.3 mmol/L (3.5-5.1) 10/10/23 12:40 Chloride 108 mmol/L (98-107) H 10/10/23 12:40 Carbon Dioxide 24 mmol/L (22-29) 10/10/23 12:40 Anion Gap 11.3 (5-19) 10/10/23 12:40 BUN 7 mg/dL (6-20) 10/10/23 12:40 Creatinine 0.5 mg/dL (0.5-0.9) 10/10/23 12:40 GFR Calculation 141.2 mL/min (90-130) H 10/10/23 12:40 Glucose 112 mg/dL (65-115) 10/10/23 12:40 Calculated Osmolality 287 mOsm/kg (285-295) 10/10/23 12:40 Calcium 8.6 mg/dL (8.5-10.5) 10/10/23 12:40 Total Bilirubin 0.5 mg/dL (0.15-1.2) 10/10/23 12:40 AST 81 U/L (0-32) H 10/10/23 12:40 ALT 144 U/L (0-33) H 10/10/23 12:40 Alkaline Phosphatase 99 U/L (35-105) 10/10/23 12:40 Total Protein 6.2 g/dL (6.6-8.7) L 10/10/23 12:40 Albumin 3.5 g/dL (3.5-5.2) 10/10/23 12:40 Globulin 2.7 g/dL (1.3-4.6) 10/10/23 12:40 Urine Color Straw (Yellow) 10/10/23 13:10 Urine Appearance Clear (CLEAR) 10/10/23 13:10 Urine pH 8 (5-7) H 10/10/23 13:10 Ur Specific Tangent 1.005 (1.005-1.030) 10/10/23 13:10 Urine Protein Neg (Negative) 10/10/23 13:10 Urine Glucose (UA) Norm (Normal) 10/10/23 13:10 Urine Ketones Negative (Negative) 10/10/23 13:10 Urine Blood 3+ (Negative) H 10/10/23 13:10 Urine Nitrate Negative (Negative) 10/10/23 13:10 Urine Bilirubin Neg (Negative) 10/10/23 13:10 Prot Sulfosalicylic Acd Negative (Negative) 10/10/23 13:10 Urine Urobilinogen Neg mg/dL (Negative) 10/10/23 13:10 Ur Leukocyte Esterase 1+ (Negative) H 10/10/23 13:10 Urine RBC 10-15 /hpf (0-2) H 10/10/23 13:10 Urine WBC 0-4 /hpf (0-5) H 10/10/23 13:10 Ur Squamous Epith Cells 0-4 /hpf (0-5) H 10/10/23 13:10 Amorphous Sediment Not Reportable 10/10/23 13:10 Urine Bacteria Trace /hpf (NONE) 10/10/23 13:10 All radiology interpretation(s) finalized by discharge Discharge Plan Discharge Patient Disposition: Admitted As Inpatient Admit Provider: Giovanni Dejesus Clinical Impression: Pelvic hematoma, Condition: Stable Coding Level of Care Code ED [employer] for Paulette Remy
--- NOTE | 2023-10-10 12:28 | CT_ITS ---
WS: [id number] CT pelvis TECHNIQUE: Contrast-enhanced CT of the pelvis with coronal and sagittal reformatted images. CLINICAL INFORMATION: hemorrhage, vulvovaginal hematoma COMPARISON: None. DLP: 531.[address] scans at [facility] use at least one of these dose optimization techniques: automated e xposure control; mA and/or kV adjustment per patient size (includes targeted exams where dose is matc hed to clinical indication); or iterative reconstruction. FINDINGS: Enlarged heterogeneous uterus. Heterogeneous fluid and blood products in the LEFT lower pe lvis adjacent to the rectum with mass effect on the adjacent rectum and vaginal cuff. This extends to the level of the LEFT perineum. This measures approximately 6.6 x 4.1 x 2.8 cm with recent appearing blood products. Fluid and blood products within the endocervical canal and cervix with distention. Low-attenuation ch maria g with heterogeneous enhancement involving the LEFT anterior uterine myometrium. Heterogeneous enhancement involving the anterior uterine myometrium with vascular enhancement may rep resent retained products of conception. This can be followed up with ultrasound. IMPRESSION: 1. Heterogeneous fluid and hematoma in the LEFT lower pelvis with mass effect on the rectum and vag inal cuff extending to the perineum. Associated heterogeneous recent appearing blood products. This m easures up to 6.6 cm in dimension. 2. Enlarged uterus with heterogeneous enhancement with fluid and blood products in the en docervical canal with distention. 3. Heterogeneous enhancement involving the LEFT anterior uterine myometrium with vascular enhancemen t may represent retained products of conception. This could be followed up with ultrasound. Notified Erci Segura DO at 10/10/2023 1:38 PM.
[2023-10-10 12:56] LABS: Basophils % 0.4 %; Eosinophils # 0.1 10^3/uL (0.0-0.8); Eosinophils % 0.8 %; Hematocrit 34.6 % (36-47); Lymphocytes # 1.5 10^3/uL (0.8-4.8); Lymphocytes % 16.5 %; Mean Corpuscular HGB Conc 32.7 g/dL (30-55); Mean Corpuscular Volume 91.8 fl (85-98); Mean Platelet Volume 9.1 fL (7.4-10.4); Monocytes # 0.6 10^3/uL (0.2-0.9); Monocytes % 6.8 %; Neutrophils % 74.2 %; Nucleated Red Blood Cells % 0 %; Platelet Count 244 10^3/cmm (157-399); Red Blood Count 3.77 10^6/uL (3.85-5.65); White Blood Count 9.16 10^3/uL (3.29-11.43)
[2023-10-10] MEDS: iohexol 350 mg/mL 500 mL Btl (per mL) IV (13:07)
[2023-10-10 13:10] LABS: Alanine Aminotransferase 144 U/L (0-33); Albumin Level 3.5 g/dL (3.5-5.2); Alkaline Phosphatase 99 U/L (35-105); Anion Gap 11.3 (5-19); Aspartate Amino Transferase 81 U/L (0-32); Blood Urea Nitrogen 7 mg/dL (6-20); Calcium 8.6 mg/dL (8.5-10.5); Carbon Dioxide 24 mmol/L (22-29); Chloride 108 mmol/L (98-107); Globulin 2.7 g/dL (1.3-4.6); Glomerular Filtration Rate 141.2 mL/min (90-130); Glucose 112 mg/dL (65-115); Osmolality Calculated 287 mOsm/kg (285-295); Potassium 4.3 mmol/L (3.5-5.1); Sodium 139 mmol/L (136-145); Total Bilirubin 0.5 mg/dL (0.15-1.2); Total Protein 6.2 g/dL (6.6-8.7)
[2023-10-10 13:55] LABS: Add Urine Microscopic? YES; Bilirubin Urine Neg (Negative); Blood Urine 3+ (Negative); Glucose Urine UA Norm (Normal); Ketones Urine Negative (Negative); Leukocyte Esterase Urine 1+ (Negative); Nitrate Urine Negative (Negative); Protein Urine Neg (Negative); Specific Gravity, Urine 1.005 (1.005-1.030); Sulfosalicylic Acid Urine Negative (Negative); Urine Appearance Clear (CLEAR); Urine Color Straw (Yellow); Urobilinogen Urine Neg (Negative); pH Urine 8 (5-7)
[2023-10-10 13:56] LABS: Add Urine Culture? Yes; Bacteria Urine TRACE /hpf; Squamous Epithelial Cell Urine 0-4 /hpf (0-5); WBC Urine 0-4 /hpf (0-5)
[2023-10-10] MEDS: D5-NS 0.45% + KCL 20 mEq 20 MEQ/1,000 ML BAG 125 MEQ IV ×2 (14:43→22:40)
[2023-10-10] MEDS: acetaminophen 325 mg Tablet 650 MG PO (20:10)
[2023-10-11] VITALS: RESP 15
[2023-10-11 04:45] VITALS: BP 129/84; PULSE 60; RESP 15; TEMP 36.8; O2SAT 97
[2023-10-11 05:17] LABS: Basophils % 0.3 %; Eosinophils # 0.1 10^3/uL (0.0-0.8); Eosinophils % 1.5 %; Hematocrit 36.4 % (36-47); Lymphocytes # 1.7 10^3/uL (0.8-4.8); Lymphocytes % 18.9 %; Mean Corpuscular Hemoglobin 30.4 pg (27-33); Mean Corpuscular Volume 92.2 fl (85-98); Mean Platelet Volume 9.1 fL (7.4-10.4); Monocytes # 0.6 10^3/uL (0.2-0.9); Neutrophils # 6.47 10^3/uL (1.8-7.7); Neutrophils % 71.3 %; Nucleated Red Blood Cells % 0 %; Platelet Count 246 10^3/cmm (157-399); Red Blood Count 3.95 10^6/uL (3.85-5.65); White Blood Count 9.09 10^3/uL (3.29-11.43)
[2023-10-11] MEDS: acetaminophen 325 mg Tablet 650 MG PO ×2 (05:24→11:23)
[2023-10-11 05:36] LABS: Alanine Aminotransferase 111 U/L (0-33); Albumin Level 3.3 g/dL (3.5-5.2); Alkaline Phosphatase 96 U/L (35-105); Aspartate Amino Transferase 46 U/L (0-32); Blood Urea Nitrogen 8 mg/dL (6-20); Calcium 8.5 mg/dL (8.5-10.5); Carbon Dioxide 21 mmol/L (22-29); Chloride 109 mmol/L (98-107); Globulin 2.7 g/dL (1.3-4.6); Glomerular Filtration Rate 141.2 mL/min (90-130); Glucose 92 mg/dL (65-115); Osmolality Calculated 286 mOsm/kg (285-295); Sodium 139 mmol/L (136-145); Total Bilirubin 0.4 mg/dL (0.15-1.2)
[2023-10-11 06:00] VITALS: RESP 16
--- NOTE | 2023-10-11 07:00 | US_ITS ---
WS: [id number] US pelv w/transvag [id number] HISTORY: Vaginal Hematoma COMPARISON: CT 10/10/2023 Uterus: 17.0 cm x 11.4 cm x 8.7 cm. Enlarged uterus. Bulbous contour with change in echogenicity along the LEFT lateral and superior uter us. Uterus is markedly enlarged with loss of the normal architecture. Endometrium: 1.0 cm. Small amount of fluid along the endometrial canal. Towards the cervix there is m ixed echogenicity consistent with retained blood products. Seen only on a few images which include the vaginal cuff is a complex fluid collection measuring 3.2 x 1.4 cm which corresponds to the vaginal cuff hematoma noted by CT. Right ovary: Not identified. Left ovary: 3.3 cm x 3.3 cm x 1.3 cm. Normal size and vascularity, no cystic or solid masses. No free fluid in the cul-de-sac. IMPRESSION: 1. Enlarged uterus as expected for recent . 2. Heterogeneous myometrium. There is a bulbous heterogeneous appearance of the uterus towards the LE FT and superiorly. Area of abnormality is contiguous with the endometrium. This corresponds to the CT findings and is suspicious but indeterminate for residual products of the conception. If the patient continues with bleeding this area needs to be further evaluated as the source. 3. Small amount of blood products along the endocervical canal. 4. Complex fluid collection adjacent to the vaginal cuff measures 3.2 x 1.4 cm. Suspicious for vagina l cuff hematoma.
[2023-10-11] MEDS: morphine 4 mg/mL SDV 1 mL 2 MG IVP (07:11)
[2023-10-11 10:00] VITALS: BP 127/81; PULSE 65; RESP 15; TEMP 36.6; TEMP 36.7; O2SAT 99
[2023-10-11 17:00] VITALS: BP 133/81; PULSE 67; RESP 15; TEMP 36.6; TEMP 36.7; O2SAT 99
--- NOTE | 2023-10-11 18:06 | P.PN_ITS ---
Subjective 2 Subjective: Mrs. Villanueva 33-year-old female G1, P1 status post spontaneous vaginal delivery 6 days ago complicated by vaginal hematoma which was later evacuated. Returned due to increased vaginal bleeding. Vitals/I&O/Wt Last Vital Signs Temp 98.0 F 10/11/23 17:00 Pulse 67 10/11/23 17:00 Resp 15 10/11/23 17:00 BP 133/81 10/11/23 17:00 Pulse Ox 99 10/11/23 17:00 O2 Del Method Room Air 10/11/23 17:00 Weight last 48 hrs Weight 89.811 kg Weight 89.811 kg Physical Exam 2 Narrative: GA; alert and oriented x 3 HEENT: normal Breasts: engorged Nipples - skin intact Lungs; clear to auscultation Heart: regular rhythm, no murmurs. Abd: Appropriately tender. BS+. Uterine fundus below umbilicus. No Fundal Tenderness. Perineum: normal lochia. Extremities: no edema, no cyanosis, no tenderness. Data 10/11/23 05:06 10/11/23 05:06 Micro: Microbiology 10/10/23 13:10 Urine Culture - Preliminary Urine,Clean Catch A&P Assessment and plan (1) Pelvic hematoma, : Mrs. Villanueva 33-year-old female G1, P1 status post spontaneous vaginal delivery 6 days ago complicated by vaginal hematoma which was later evacuated. Was admitted for observation due to referring increased vaginal bleeding. She is afebrile and hemodynamically stable. The hematoma is stable. H&H stable. Plan Observation Attestations 2 Medical Necessity Statement*: In my professional opinion per admitting diagnosis Coding Level of Care Code Acute Code for Chg Fwd Diagnoses Pelvic hematoma, O71.7
[2023-10-11 19:13] VITALS: BP 133/81; PULSE 67; RESP 15; TEMP 36.7; O2SAT 99
--- NOTE | 2023-10-11 20:42 | PC.NURSE ---
Morphine 1.5 ml was wasted with Yudith Mancilla RN at 0715 am on 10-11-2023.
== END 2023-10-11 19:12 | disposition home or self-care (01) ==
LOC: ER 12:18 → OBGYN 15:52
PROVIDERS: Admitting Provider Obstetrics & Gynecology; Emergency Provider Family Medicine; PCP Family Medicine Adult Medicine; Visit Provider Obstetrics & Gynecology
DX: O71.7 Obstetric hematoma of pelvis (principal)
CPT/HCPCS: 36415; 72193; 76830; 76856; 80053; 81001; 85025; 87086; 99285; G0378; J2270; Q9967

== ENCOUNTER → 2023-11-17 11:02 | Outpatient (BNVA) | payer OTHER, SELFPAY | PROVIDERS: PCP Family Medicine Adult Medicine; Visit Provider Obstetrics & Gynecology | DX: Z30.9 Encounter for contraceptive management, unspecified (principal) | CPT/HCPCS: 81025 ==